=== PATIENT | female | born 1950 | race Caucasian/White ===

== ENCOUNTER → 2016-12-29 | Outpatient (REF) | payer MEDICARE, OTHER | LOC: M LAB REF 16:31 | PROVIDERS: ATTEND Internal Medicine | DX: E74.8 Other specified disorders of carbohydrate metabolism (principal) ==

== ENCOUNTER → 2017-03-06 | Outpatient (CLI) | payer MEDICARE, BC, OTHER ==
--- NOTE | 2017-03-06 09:17 | REP ---
Right hand four views: There is osteoarthritis at the thumb IP articulation, thumb MCP articulation and thumb CMC articulation. There is joint space narrowing of the PIP and DIP articulations compatible with early osteoarthritis. Mineralization is normal. There is no fracture or dislocation. There are no calcifications or foreign bodies. Impression: Osteoarthritis. Signed by DanielJ. Drea MD 03/06/2017 09:08 A [facility]
== END ==
LOC: M WUC 08:54
PROVIDERS: ATTEND Physician Assistant
DX: M25.549 Pain in joints of unspecified hand (principal)

== ENCOUNTER → 2017-12-20 | Outpatient (CLI) | payer MEDICARE, BC, OTHER ==
[2017-12-20 13:40] LABS: HEMATOCRIT 43.5 % (36.0-47.0); MEAN CORPUSCULAR HEMOGLOBIN 27.3 pg (27.0-33.0); MEAN CORPUSCULAR HGB CONC 32.2 g/dl (32.0-36.5); MEAN CORPUSCULAR VOLUME 84.8 fl (80.0-96.0); PLATELET COUNT, AUTOMATED 276 10^3/uL (150-450); RED BLOOD COUNT 5.13 10^6/uL (4.00-5.40); RED CELL DISTRIBUTION WIDTH 14.8 % (11.5-14.5); WHITE BLOOD COUNT 6.3 10^3/uL (4.0-10.0)
[2017-12-20 14:04] LABS: ALBUMIN 3.9 GM/DL (3.2-5.2); ALBUMIN/GLOBULIN RATIO 1.15 (1.00-1.93); ALKALINE PHOSPHATASE 116 U/L (45-117); ALT/SGPT 33 U/L (12-78); ANION GAP 9 MEQ/L (8-16); AST/SGOT 18 U/L (7-37); BLOOD UREA NITROGEN 17 MG/DL (7-18); CALCIUM LEVEL 9.2 MG/DL (8.8-10.2); CARBON DIOXIDE LEVEL 30 MEQ/L (21-32); CHLORIDE LEVEL 103 MEQ/L (98-107); CHOLESTEROL LEVEL 169 MG/DL (<200); CHOLESTEROL RISK RATIO 2.449 (<5); CREATININE FOR GFR 1.12 MG/DL (0.55-1.30); FREE T4 1.29 NG/DL (0.76-1.46); GLOMERULAR FILTRATION RATE 51.5 (>45); GLUCOSE, FASTING 110 MG/DL (70-100); HDL CHOLESTEROL 69 MG/DL (>40); LDL CHOLESTEROL 69.6 MG/DL (<100); MAGNESIUM LEVEL 2.4 MG/DL (1.8-2.4); NON-HDL-C 100 MG/DL; SODIUM LEVEL 142 MEQ/L (136-145); THYROID STIMULATING HORMONE 0.657 uIU/ML (0.358-3.740); TOTAL PROTEIN 7.3 GM/DL (6.4-8.2); TRIGLYCERIDES LEVEL 152 MG/DL (<150)
[2017-12-20 14:09] LABS: TOTAL 25(OH) VITAMIN D 32.2 NG/ML (30.0-100.0)
[2017-12-20 14:14] LABS: ESTIMATED AVERAGE GLUCOSE 146 MG/DL (60-110); HEMOGLOBIN A1c 6.7 %
== END ==
LOC: M SMT 08:13
DX: G47.62 Sleep related leg cramps (principal); E06.3 Autoimmune thyroiditis; E55.9 Vitamin D deficiency, unspecified; I10 Essential (primary) hypertension; E78.1 Pure hyperglyceridemia; E78.2 Mixed hyperlipidemia
CPT/HCPCS: 83735

== ENCOUNTER → 2018-06-08 | Outpatient (CLI) | payer MEDICARE, BC, OTHER ==
--- NOTE | 2018-06-08 13:17 | REP ---
RIGHT KNEE, FIVE VIEWS: HISTORY: Contusion. There is no acute fracture or dislocation. There is mild narrowing of the joint spaces. Osteophytes are present on the femur, tibia, and patella. IMPRESSION:There is no acute fracture or dislocation. Electronically Signed by Devaughn Thomas MD 06/08/2018 02:00 P
== END ==
LOC: M WUC 11:29
PROVIDERS: ATTEND Physician Assistant
DX: S80.02XA Contusion of left knee, initial encounter (principal)

== ENCOUNTER → 2018-07-02 | Outpatient (CLI) | payer MEDICARE, BC, OTHER ==
--- NOTE | 2018-07-02 14:36 | REP ---
RIGHT KNEE, FIVE VIEWS: HISTORY: Pain. There is no acute fracture or dislocation. There is mild narrowing of the joint spaces. Osteophytes are present on the femur, tibia, and patella. A calcification is present anterolateral to the distal femur. IMPRESSION: Degenerative change as described above. Electronically Signed by Devaughn Thomas MD 07/02/2018 02:47 P
== END ==
LOC: M WUC 13:18
PROVIDERS: ATTEND Physician Assistant
DX: M25.561 Pain in right knee (principal)

== ENCOUNTER → 2018-07-08 | Outpatient (CLI) | payer MEDICARE, BC, OTHER ==
[2018-07-08 10:10] LABS: BASO % 0.3 % (0.0-1.0); EOS # 0.2 10^3/uL (0.0-0.50); HEMATOCRIT 43.8 % (36.0-47.0); HEMOGLOBIN 13.9 g/dl (12.0-15.5); LYMPH # 2.2 10^3/uL (1.5-4.5); MEAN CORPUSCULAR HEMOGLOBIN 26.4 pg (27.0-33.0); MEAN CORPUSCULAR HGB CONC 31.7 g/dl (32.0-36.5); MEAN CORPUSCULAR VOLUME 83.1 fl (80.0-96.0); MONO # 0.5 10^3/uL (0.0-0.8); MONO % 7.2 % (0.0-5.0); NEUTROPHILS # 3.4 10^3/uL (1.8-7.7); NEUTROPHILS % 54.2 % (36.0-66.0); PLATELET COUNT, AUTOMATED 320 10^3/uL (150-450); RED BLOOD COUNT 5.27 10^6/uL (4.00-5.40); WHITE BLOOD COUNT 6.2 10^3/uL (4.0-10.0)
[2018-07-08 10:24] LABS: HEMOGLOBIN A1c 7.1 %
[2018-07-08 10:27] LABS: ALT/SGPT 26 U/L (12-78); BILIRUBIN,TOTAL 0.7 MG/DL (0.2-1.0); BLOOD UREA NITROGEN 21 MG/DL (7-18); CARBON DIOXIDE LEVEL 29 MEQ/L (21-32); CHLORIDE LEVEL 102 MEQ/L (98-107); CHOLESTEROL LEVEL 176 MG/DL (<200); CHOLESTEROL RISK RATIO 2.793 (<5); CREATININE FOR GFR 0.94 MG/DL (0.55-1.30); FREE T4 1.33 NG/DL (0.76-1.46); GLOMERULAR FILTRATION RATE > 60.0 (>45); GLUCOSE, FASTING 127 MG/DL (70-100); HDL CHOLESTEROL 63 MG/DL (>40); LDL CHOLESTEROL 72 MG/DL (<100); NON-HDL-C 113 MG/DL; POTASSIUM SERUM 4.9 MEQ/L (3.5-5.1); SODIUM LEVEL 137 MEQ/L (136-145); TOTAL PROTEIN 7.1 GM/DL (6.4-8.2); TRIGLYCERIDES LEVEL 204 MG/DL (<150)
[2018-07-09 09:58] LABS: TOTAL 25(OH) VITAMIN D 17.7 NG/ML (30.0-100.0)
== END ==
LOC: M WUC 08:11
PROVIDERS: ATTEND Family Medicine
DX: E78.2 Mixed hyperlipidemia (principal); E06.3 Autoimmune thyroiditis; E55.9 Vitamin D deficiency, unspecified; E11.9 Type 2 diabetes mellitus without complications

== ENCOUNTER → 2018-09-04 | Outpatient (CLI) | payer MEDICARE, BC, OTHER ==
[2018-09-04 12:47] LABS: BASO % 0.2 % (0.0-1.0); EOS # 0.1 10^3/uL (0.0-0.50); EOS % 1.4 % (0.0-3.0); HEMATOCRIT 43.1 % (36.0-47.0); HEMOGLOBIN 13.5 g/dl (12.0-15.5); LYMPH # 2.1 10^3/uL (1.5-4.5); LYMPH % 33.3 % (24.0-44.0); MEAN CORPUSCULAR HEMOGLOBIN 26.7 pg (27.0-33.0); MEAN CORPUSCULAR HGB CONC 31.3 g/dl (32.0-36.5); MEAN CORPUSCULAR VOLUME 85.3 fl (80.0-96.0); MONO # 0.4 10^3/uL (0.0-0.8); NEUTROPHILS # 3.7 10^3/uL (1.8-7.7); NEUTROPHILS % 57.8 % (36.0-66.0); PLATELET COUNT, AUTOMATED 300 10^3/uL (150-450); RED BLOOD COUNT 5.05 10^6/uL (4.00-5.40); WHITE BLOOD COUNT 6.3 10^3/uL (4.0-10.0)
[2018-09-04 12:53] LABS: ALBUMIN 3.8 GM/DL (3.2-5.2); PERCENT SATURATION 23.4 % (13.2-45.0)
[2018-09-04 13:05] LABS: HEMOGLOBIN A1c 6.6 %
== END ==
LOC: M WUC 09:48
PROVIDERS: ATTEND Orthopaedic Surgery
DX: D64.9 Anemia, unspecified (principal); M25.562 Pain in left knee; M17.12 Unilateral primary osteoarthritis, left knee; Z01.812 Encounter for preprocedural laboratory examination

== ENCOUNTER → 2018-09-24 | Outpatient (CLI) | payer MEDICARE, BC, OTHER ==
[2018-09-24 18:17] LABS: BASO % 0.5 % (0.0-1.0); EOS % 0.7 % (0.0-3.0); HEMATOCRIT 44.6 % (36.0-47.0); HEMOGLOBIN 14.1 g/dl (12.0-15.5); LYMPH # 1.8 10^3/uL (1.5-4.5); LYMPH % 30.8 % (24.0-44.0); MEAN CORPUSCULAR HEMOGLOBIN 27.3 pg (27.0-33.0); MEAN CORPUSCULAR HGB CONC 31.6 g/dl (32.0-36.5); MEAN CORPUSCULAR VOLUME 86.3 fl (80.0-96.0); MONO # 0.5 10^3/uL (0.0-0.8); MONO % 8.9 % (0.0-5.0); NEUTROPHILS # 3.5 10^3/uL (1.8-7.7); NEUTROPHILS % 58.4 % (36.0-66.0); PLATELET COUNT, AUTOMATED 316 10^3/uL (150-450); RED BLOOD COUNT 5.17 10^6/uL (4.00-5.40)
[2018-09-24 18:55] LABS: CALCIUM LEVEL 9.6 MG/DL (8.8-10.2); CREATININE FOR GFR 1.02 MG/DL (0.55-1.30); GLOMERULAR FILTRATION RATE 57.2 (>45); POTASSIUM SERUM 4.6 MEQ/L (3.5-5.1)
[2018-09-24 20:13] LABS: HEMOGLOBIN A1c 6.7 %
== END ==
LOC: M SMT 11:26
PROVIDERS: ATTEND Physician Assistant
DX: Z01.818 Encounter for other preprocedural examination (principal)

== ENCOUNTER → 2018-12-29 | Outpatient (CLI) | payer MEDICARE, BC, OTHER ==
[2018-12-29 17:28] LABS: HEMOGLOBIN A1c 6.6 %
[2018-12-29 17:29] LABS: ALBUMIN 3.8 GM/DL (3.2-5.2); ALT/SGPT 23 U/L (12-78); BILIRUBIN,TOTAL 0.6 MG/DL (0.2-1.0); BLOOD UREA NITROGEN 18 MG/DL (7-18); CALCIUM LEVEL 8.8 MG/DL (8.8-10.2); CARBON DIOXIDE LEVEL 31 MEQ/L (21-32); CHLORIDE LEVEL 105 MEQ/L (98-107); CHOLESTEROL LEVEL 144 MG/DL (<200); CHOLESTEROL RISK RATIO 2.526 (<5); CREATININE FOR GFR 0.97 MG/DL (0.55-1.30); FREE T4 1.22 NG/DL (0.76-1.46); GLOMERULAR FILTRATION RATE > 60.0 (>45); GLUCOSE, FASTING 107 MG/DL (70-100); HDL CHOLESTEROL 57 MG/DL (>40); LDL CHOLESTEROL 58 MG/DL (<100); NON-HDL-C 87 MG/DL; POTASSIUM SERUM 4.8 MEQ/L (3.5-5.1); SODIUM LEVEL 140 MEQ/L (136-145); TRIGLYCERIDES LEVEL 146 MG/DL (<150)
[2018-12-31 11:42] LABS: TOTAL 25(OH) VITAMIN D 27.3 NG/ML (30.0-100.0)
== END ==
LOC: M WUC 08:04
PROVIDERS: ATTEND Family Medicine
DX: E55.9 Vitamin D deficiency, unspecified (principal); E06.3 Autoimmune thyroiditis; E11.9 Type 2 diabetes mellitus without complications; E78.2 Mixed hyperlipidemia; I10 Essential (primary) hypertension

== ENCOUNTER → 2019-03-07 | Outpatient (CLI) | payer MEDICARE, BC, OTHER ==
[2019-03-07 09:31] LABS: HEMATOCRIT 40.9 % (36.0-47.0); HEMOGLOBIN 12.8 g/dl (12.0-15.5); MEAN CORPUSCULAR HGB CONC 31.3 g/dl (32.0-36.5); MEAN CORPUSCULAR VOLUME 83.1 fl (80.0-96.0); PLATELET COUNT, AUTOMATED 308 10^3/uL (150-450); RED BLOOD COUNT 4.92 10^6/uL (4.00-5.40); WHITE BLOOD COUNT 6.4 10^3/uL (4.0-10.0)
[2019-03-07 09:57] LABS: ERYTHROCYTE SEDIMENTATION RATE 22 mm/hr (0-30)
== END ==
LOC: M WUC 08:14
PROVIDERS: ATTEND Physician Assistant Medical
DX: Z47.89 Encounter for other orthopedic aftercare (principal); M25.562 Pain in left knee

== ENCOUNTER → 2019-03-20 | Outpatient (CLI) | payer MEDICARE, BC, OTHER ==
[2019-03-20 09:39] LABS: ALBUMIN 3.7 GM/DL (3.2-5.2); ALT/SGPT 39 U/L (12-78); BILIRUBIN,TOTAL 0.8 MG/DL (0.2-1.0); BLOOD UREA NITROGEN 15 MG/DL (7-18); CALCIUM LEVEL 9.5 MG/DL (8.8-10.2); CARBON DIOXIDE LEVEL 30 MEQ/L (21-32); CHLORIDE LEVEL 105 MEQ/L (98-107); CREATININE FOR GFR 0.97 MG/DL (0.55-1.30); GLOMERULAR FILTRATION RATE > 60.0 (>45); GLUCOSE, FASTING 124 MG/DL (70-100); POTASSIUM SERUM 4.7 MEQ/L (3.5-5.1); SODIUM LEVEL 140 MEQ/L (136-145); TOTAL PROTEIN 6.8 GM/DL (6.4-8.2)
[2019-03-20 09:43] LABS: HEMOGLOBIN A1c 6.6 %
[2019-03-20 20:04] LABS: MALB URINE SIEMENS 18.4 MG/L; MAU/CREAT RATIO 7.7 MCG/MG (0.0-30.0)
== END ==
LOC: M WUC 08:03
PROVIDERS: ATTEND Family Medicine
DX: E11.9 Type 2 diabetes mellitus without complications (principal)

== ENCOUNTER → 2019-06-24 | Outpatient (CLI) | payer MEDICARE, BC, OTHER ==
[2019-06-24 10:51] LABS: BLOOD UREA NITROGEN 21 MG/DL (7-18); CALCIUM LEVEL 9.3 MG/DL (8.8-10.2); CARBON DIOXIDE LEVEL 29 MEQ/L (21-32); CHLORIDE LEVEL 104 MEQ/L (98-107); CHOLESTEROL LEVEL 151 MG/DL (<200); CREATININE FOR GFR 0.97 MG/DL (0.55-1.30); FREE T4 1.41 NG/DL (0.76-1.46); GLOMERULAR FILTRATION RATE > 60.0 (>39); GLUCOSE, FASTING 133 MG/DL (70-100); HDL CHOLESTEROL 51 MG/DL (>40); LDL CHOLESTEROL 70 MG/DL (<100); NON-HDL-C 100 MG/DL; POTASSIUM SERUM 4.2 MEQ/L (3.5-5.1); SODIUM LEVEL 141 MEQ/L (136-145); TRIGLYCERIDES LEVEL 149 MG/DL (<150)
[2019-06-24 10:57] LABS: TOTAL 25(OH) VITAMIN D 28.1 NG/ML (30.0-100.0)
[2019-06-24 11:19] LABS: HEMOGLOBIN A1c 6.8 %
== END ==
LOC: M WUC 08:25
PROVIDERS: ATTEND Physician Assistant
DX: E55.9 Vitamin D deficiency, unspecified (principal); E06.3 Autoimmune thyroiditis; E78.2 Mixed hyperlipidemia

== ENCOUNTER → 2019-07-29 | Outpatient (CLI) | payer MEDICARE, BC, OTHER ==
[2019-07-29 16:16] LABS: ALBUMIN 3.9 GM/DL (3.2-5.2); BILIRUBIN,TOTAL 0.9 MG/DL (0.2-1.0); CALCIUM LEVEL 9.6 MG/DL (8.8-10.2); CREATININE FOR GFR 1.07 MG/DL (0.55-1.30); MAGNESIUM LEVEL 2.4 MG/DL (1.8-2.4); POTASSIUM SERUM 4.2 MEQ/L (3.5-5.1); TOTAL PROTEIN 6.7 GM/DL (6.4-8.2)
== END ==
LOC: M WUC 12:55
PROVIDERS: ATTEND Internal Medicine Cardiovascular Disease
DX: R06.02 Shortness of breath (principal)

== ENCOUNTER → 2019-09-23 | Outpatient (CLI) | payer MEDICARE, BC, OTHER | LOC: M LABSMTC 12:34 | PROVIDERS: ATTEND Family Medicine | DX: Z11.59 Encounter for screening for other viral diseases (principal); Z20.828 Contact with and (suspected) exposure to other viral communicable diseases ==

== ENCOUNTER → 2020-01-14 | Outpatient (REF) | payer MEDICARE, BC, OTHER | LOC: M LAB REF 09:17 | PROVIDERS: ATTEND Dermatology | DX: R22.1 Localized swelling, mass and lump, neck (principal) ==

== ENCOUNTER → 2020-01-15 | Outpatient (CLI) | payer MEDICARE, BC, OTHER | LOC: M LABSMTC 10:30 | PROVIDERS: ATTEND Ophthalmology | DX: Z20.828 Contact with and (suspected) exposure to other viral communicable diseases (principal) | CPT/HCPCS: C9803; U0003 ==

== ENCOUNTER → 2020-02-05 | Outpatient (CLI) | payer MEDICARE, BC, OTHER | LOC: M LABSMTC 10:11 | PROVIDERS: ATTEND Ophthalmology | DX: Z20.828 Contact with and (suspected) exposure to other viral communicable diseases (principal) | CPT/HCPCS: C9803; U0003 ==

== ENCOUNTER → 2020-03-27 | Outpatient (REF) | payer MEDICARE, OTHER | LOC: M LAB REF 17:02 | PROVIDERS: ATTEND Ophthalmology | DX: H02.821 Cysts of right upper eyelid (principal) ==

== ENCOUNTER → 2020-05-12 | Outpatient (REF) | payer MEDICARE, OTHER | LOC: M LAB REF 14:53 | PROVIDERS: ATTEND Dermatology | DX: L72.0 Epidermal cyst (principal) ==

== ENCOUNTER 2020-05-27 10:38 | Outpatient (RCR) | payer MEDICARE, BC, OTHER | END 2020-05-28 | LOC: M PT 10:38 | PROVIDERS: ATTEND Orthopaedic Surgery | DX: Z47.89 Encounter for other orthopedic aftercare (principal); M25.551 Pain in right hip; M54.5 Low back pain ==

== ENCOUNTER 2020-06-22 10:34 | Outpatient (RCR) | payer MEDICARE, BC, OTHER | END 2020-06-28 | LOC: M PT 10:34 | PROVIDERS: ATTEND Orthopaedic Surgery | DX: M25.551 Pain in right hip (principal); M54.5 Low back pain ==

== ENCOUNTER 2020-07-20 10:45 | Outpatient (RCR) | payer MEDICARE, BC, OTHER | END 2020-07-26 | LOC: M PT 10:45 | PROVIDERS: ATTEND Orthopaedic Surgery | DX: M25.551 Pain in right hip (principal); M54.5 Low back pain ==

== ENCOUNTER → 2020-08-26 | Outpatient (RCR) | payer MEDICARE, BC, OTHER | LOC: M PT 07-27 10:33 | PROVIDERS: ATTEND Orthopaedic Surgery | DX: M54.5 Low back pain (principal); M25.551 Pain in right hip ==

== ENCOUNTER → 2020-09-03 | Outpatient (CLI) | payer MEDICARE, BC, OTHER ==
[2020-09-03 18:38] LABS: BASO % 0.1 % (0.0-1.0); EOS % 0.4 % (0.0-3.0); HEMATOCRIT 43.8 % (36.0-47.0); HEMOGLOBIN 13.8 g/dl (12.0-15.5); LYMPH # 2.4 10^3/uL (1.5-5.0); LYMPH % 32.2 % (24.0-44.0); MEAN CORPUSCULAR HEMOGLOBIN 26.9 pg (27.0-33.0); MEAN CORPUSCULAR HGB CONC 31.5 g/dl (32.0-36.5); MEAN CORPUSCULAR VOLUME 85.4 fl (80.0-96.0); MONO # 0.6 10^3/uL (0.0-0.8); MONO % 7.5 % (2.0-8.0); NEUTROPHILS # 4.4 10^3/uL (1.5-8.5); NEUTROPHILS % 59.7 % (36.0-66.0); PLATELET COUNT, AUTOMATED 344 10^3/uL (150-450); RED BLOOD COUNT 5.13 10^6/uL (4.00-5.40); WHITE BLOOD COUNT 7.3 10^3/uL (4.0-10.0)
[2020-09-03 18:52] LABS: BILIRUBIN,TOTAL 0.7 MG/DL (0.2-1.0); CALCIUM LEVEL 9.5 MG/DL (8.8-10.2); CREATININE FOR GFR 1.08 MG/DL (0.55-1.30); GLOMERULAR FILTRATION RATE 53.2 (>39); POTASSIUM SERUM 4.2 MEQ/L (3.5-5.1); TOTAL PROTEIN 7.1 GM/DL (6.4-8.2)
== END ==
LOC: M LAB 17:35
PROVIDERS: ATTEND Family Medicine
DX: K57.32 Diverticulitis of large intestine without perforation or abscess without bleeding (principal)

== ENCOUNTER → 2020-09-04 | Outpatient (CLI) | payer MEDICARE, BC, OTHER ==
[~2020-09-04] MED LIST: GASTROGRAFIN SOLUTION 30ML (Q9963) As Ordered ONE; ISOVUE-370 76% 100ML VIAL As Ordered ONE
--- NOTE | 2020-09-04 13:23 | REP ---
INDICATION: ABD PAIN BLOATING. COMPARISON: None. TECHNIQUE: Abdomen is and pelvis CT with IV and bowel contrast. FINDINGS: Patient indicates that she has a cholecystectomy and appendectomy. Visualized lung lopez are unremarkable. The hepatic parenchyma is hypodense compatible with hepato steatosis. There are surgical clips in the gallbladder fossa. There is fatty atrophy of the pancreas. The spleen is unremarkable. The adrenals are unremarkable. Kidneys are unremarkable except for few tiny renal cysts. The abdominal aorta is unremarkable. There is no periaortic adenopathy or mass. There is wall thickening of the ascending colon and transverse colon, nonspecific but could represent infectious versus inflammatory colitis in the appropriate clinical setting. The bowel is otherwise unremarkable. Pelvis: The uterus, adnexa and bladder are unremarkable. There is no adenopathy or ascites. IMPRESSION: There is wall thickening of the ascending colon transverse colon, nonspecific, but could represent infectious versus inflammatory colitis in the appropriate clinical setting. The cholecystectomy and appendectomy. Hepato steatosis. Fatty atrophy of the pancreas. <Electronically signed by Kamlesh Shepard > 09/04/20 [id number]
== END ==
LOC: M RAD 11:09
PROVIDERS: ATTEND Family Medicine
DX: K57.32 Diverticulitis of large intestine without perforation or abscess without bleeding (principal); Z90.49 Acquired absence of other specified parts of digestive tract; Z76.0 Encounter for issue of repeat prescription
CPT/HCPCS: 74177; Q9963; Q9967

== ENCOUNTER 2020-09-16 12:22 | Outpatient (RCR) | payer MEDICARE, BC, OTHER | END 2020-09-25 | LOC: M PT 12:22 | PROVIDERS: ATTEND Orthopaedic Surgery | DX: M25.551 Pain in right hip (principal) ==

== ENCOUNTER 2020-09-29 14:14 | Outpatient (RCR) | payer MEDICARE, BC, OTHER | END 2020-10-26 | LOC: M PT 14:14 | PROVIDERS: ATTEND Orthopaedic Surgery | DX: M70.61 Trochanteric bursitis, right hip (principal) ==

== ENCOUNTER 2020-11-11 09:52 | Outpatient (RCR) | payer MEDICARE, BC, OTHER | END 2020-11-25 | LOC: M PT 09:52 | PROVIDERS: ATTEND Orthopaedic Surgery Orthopaedic Surgery of the Spine | DX: M54.5 Low back pain (principal) ==

== ENCOUNTER 2020-12-01 09:51 | Outpatient (RCR) | payer MEDICARE, BC, OTHER | END 2020-12-26 | LOC: M PT 09:51 | PROVIDERS: ATTEND Orthopaedic Surgery Orthopaedic Surgery of the Spine | DX: M54.5 Low back pain (principal) ==

== ENCOUNTER → 2021-01-01 | Outpatient (REF) | payer MEDICARE, BC, OTHER | LOC: M WUC 19:26 | PROVIDERS: ATTEND Physician Assistant | DX: R30.0 Dysuria (principal) ==

== ENCOUNTER 2021-02-24 12:03 | Outpatient (RCR) | payer MEDICARE, BC, OTHER | END 2021-02-25 | LOC: M PT 12:03 | PROVIDERS: ATTEND Orthopaedic Surgery Orthopaedic Surgery of the Spine | DX: Z47.89 Encounter for other orthopedic aftercare (principal); Z98.1 Arthrodesis status; M54.5 Low back pain ==

== ENCOUNTER 2021-03-25 12:44 | Outpatient (RCR) | payer MEDICARE, BC, OTHER | END 2021-03-28 | LOC: M PT 12:44 | PROVIDERS: ATTEND Orthopaedic Surgery Orthopaedic Surgery of the Spine | DX: Z47.89 Encounter for other orthopedic aftercare (principal); M54.50 Low back pain, unspecified ==

== ENCOUNTER → 2021-04-15 | Outpatient (REF) | payer MEDICARE, OTHER | LOC: M SFHCRHEU 11:27 | PROVIDERS: ATTEND Internal Medicine | DX: M25.40 Effusion, unspecified joint (principal) | CPT/HCPCS: 85652; 86140; G0463 ==

== ENCOUNTER 2021-04-20 13:00 | Outpatient (RCR) | payer MEDICARE, BC, OTHER | END 2021-04-27 | LOC: M PT 13:00 | PROVIDERS: ATTEND Orthopaedic Surgery Orthopaedic Surgery of the Spine | DX: M54.50 Low back pain, unspecified (principal); Z47.89 Encounter for other orthopedic aftercare ==

== ENCOUNTER → 2021-04-30 | Outpatient (REF) | payer MEDICARE, OTHER ==
[2021-04-30 17:46] LABS: APPEARANCE, URINE HAZY (CLEAR); BILIRUBIN, URINE AUTO NEGATIVE (NEGATIVE); BLOOD, URINE BLOOD NEGATIVE (NEGATIVE); COLOR, URINE AMBER (YELLOW); GLUCOSE, URINE (UA) AUTO NEGATIVE (NEGATIVE); KETONE, URINE AUTO TRACE mg/dL (NEGATIVE); LEUKOCYTE ESTERASE, URINE AUTO 1+ (NEGATIVE); NITRITE, URINE AUTO NEGATIVE (NEGATIVE); PROTEIN, URINE AUTO NEGATIVE (NEGATIVE); SPECIFIC GRAVITY URINE AUTO 1.031 (1.002-1.035); UROBILINOGEN, URINE AUTO 0.2 mg/dL (0.0-2.0)
[2021-04-30 17:54] LABS: CALCIUM LEVEL 9.9 MG/DL (8.8-10.2); CREATININE FOR GFR 1.05 MG/DL (0.55-1.30); POTASSIUM SERUM 4.5 MEQ/L (3.5-5.1)
[2021-04-30 17:59] LABS: TOTAL PROTEIN,RANDOM URINE 19.7 MG/DL (0.0-12.0)
[2021-05-04 09:50] LABS: DRVV SCREEN 39.6 SEC
[2021-05-04 09:53] LABS: PTT LUPUS TYPE ANTICOAG SCREEN 1.1 (0-1.2)
== END ==
LOC: M SFHCRHEU 13:58
PROVIDERS: ATTEND Internal Medicine
DX: M06.4 Inflammatory polyarthropathy (principal); R76.8 Other specified abnormal immunological findings in serum
CPT/HCPCS: 36415; 80048; 81001; 82570; 84156; 85730; 86160; 86162; G0463

== ENCOUNTER 2021-05-18 09:40 | Outpatient (RCR) | payer MEDICARE, BC, OTHER | END 2021-05-28 | LOC: M PT 09:40 | PROVIDERS: ATTEND Orthopaedic Surgery Orthopaedic Surgery of the Spine | DX: Z47.89 Encounter for other orthopedic aftercare (principal); M54.50 Low back pain, unspecified ==

== ENCOUNTER → 2021-08-10 | Outpatient (REF) | payer MEDICARE, OTHER ==
[2021-08-10 17:42] LABS: C REACTIVE PROTEIN QUANTITATIV < 0.30 MG/DL (0.00-0.30); COMPLEMENT C3 138 MG/DL (90-180); COMPLEMENT C4 26 MG/DL (10-40)
[2021-08-16 14:09] LABS: ANTI DS-DNA AB Negative (Negative); COMPLEMENT TOTAL (CH50) > 60 U/mL (>41); G6PD2 5.12 x10E6/uL (3.77-5.28)
== END ==
LOC: M SFHCRHEU 12:47
PROVIDERS: ATTEND Internal Medicine
DX: M32.9 Systemic lupus erythematosus, unspecified (principal)

== ENCOUNTER → 2021-08-11 | Outpatient (REF) | payer MEDICARE, OTHER ==
[2021-08-11 12:52] LABS: APPEARANCE, URINE HAZY (CLEAR); BACTERIA, URINE AUTO NEGATIVE (NEGATIVE); BILIRUBIN, URINE AUTO NEGATIVE (NEGATIVE); BLOOD, URINE BLOOD NEGATIVE (NEGATIVE); COLOR, URINE YELLOW (YELLOW); GLUCOSE, URINE (UA) AUTO NEGATIVE (NEGATIVE); KETONE, URINE AUTO NEGATIVE (NEGATIVE); LEUKOCYTE ESTERASE, URINE AUTO NEGATIVE (NEGATIVE); NITRITE, URINE AUTO NEGATIVE (NEGATIVE); PROTEIN, URINE AUTO NEGATIVE (NEGATIVE); RBC, URINE AUTO 0 /HPF (0-3); SPECIFIC GRAVITY URINE AUTO 1.014 (1.002-1.035); SQUAMOUS EPITHELIAL CELL UR AU 1 /HPF (0-6); UROBILINOGEN, URINE AUTO 0.2 mg/dL (0.0-2.0); WBC, URINE AUTO 3 /HPF (0-3)
[2021-08-11 13:16] LABS: CREATININE,RANDOM URINE 55.5 MG/DL; TOTAL PROTEIN,RANDOM URINE 17.3 MG/DL (0.0-12.0)
== END ==
LOC: M SFHCRHEU 12:09
PROVIDERS: ATTEND Internal Medicine
DX: M32.9 Systemic lupus erythematosus, unspecified (principal)

== ENCOUNTER → 2021-08-16 | Outpatient (REF) | payer MEDICARE, OTHER | LOC: M SFHCDERM 14:31 | PROVIDERS: ATTEND Nurse Practitioner Family | DX: L57.0 Actinic keratosis (principal) ==

== ENCOUNTER → 2021-10-22 | Outpatient (CLI) | payer MEDICARE, BC, OTHER ==
[~2021-10-22] MED LIST changes: -GASTROGRAFIN SOLUTION 30ML (Q9963) As Ordered ONE
== END ==
LOC: M RAD 09:44
PROVIDERS: ATTEND Nurse Practitioner Adult Health
DX: K11.20 Sialoadenitis, unspecified (principal)
CPT/HCPCS: 70492; Q9967

== ENCOUNTER → 2021-11-03 | Outpatient (REF) | payer MEDICARE, BC, OTHER | LOC: M LAB REF 09:28 | PROVIDERS: ATTEND Nurse Practitioner Adult Health | DX: R19.7 Diarrhea, unspecified (principal) ==

== ENCOUNTER → 2021-11-12 | Outpatient (CLI) | payer MEDICARE, OTHER | LOC: M WUC 13:23 | PROVIDERS: ATTEND Family Medicine | DX: R06.02 Shortness of breath (principal) ==

== ENCOUNTER → 2021-12-01 | Outpatient (CLI) | payer MEDICARE, OTHER, BC | LOC: M RAD 16:17 | PROVIDERS: ATTEND Family Medicine | DX: R91.1 Solitary pulmonary nodule (principal); K76.0 Fatty (change of) liver, not elsewhere classified; Z90.49 Acquired absence of other specified parts of digestive tract | CPT/HCPCS: 71260; Q9967 ==

== ENCOUNTER 2021-12-06 11:29 | Emergency (ER) | payer MEDICARE, BC, OTHER ==
[~2021-12-06] VITALS: Ht 165.1 cm; Wt 86.7 kg
[2021-12-06] MEDS ORDERED: LEVO125T4 (12:26)
[2021-12-06] MEDS ORDERED: ATOR1TAB21 (12:26)
[2021-12-06] MEDS ORDERED: MELA5CAP2 PO (12:26)
[2021-12-06] MEDS ORDERED: VITA500C24 PO (12:26)
[2021-12-06] MEDS ORDERED: NOXI1TAB PO (12:26)
[2021-12-06] MEDS ORDERED: METH4TAB8 (12:26)
[2021-12-06] MEDS ORDERED: LOTR10CA PO (12:26)
[2021-12-06] MEDS ORDERED: HYDR200T3 (12:26)
[2021-12-06] MEDS ORDERED: MECL-86 PO (12:26)
[2021-12-06] MEDS ORDERED: METF10004 PO (12:26)
[2021-12-06] MEDS ORDERED: SOLI10TA (12:26)
[2021-12-06] MEDS ORDERED: ALBU8.5H (12:26)
[2021-12-06] MEDS ORDERED: LIDOCAINE 4% CREAM 5GM (LMX4) TOP ONE (16:55)
[2021-12-06] MEDS ORDERED: ANEC4CRE3 TOP (17:47)
[2021-12-06 18:23] VITALS: BP 160/99
== END 2021-12-06 18:24 | disposition home or self-care (01) ==
LOC: M ED 11:29
DX: M79.661 Pain in right lower leg (principal); I10 Essential (primary) hypertension; E78.5 Hyperlipidemia, unspecified; M32.9 Systemic lupus erythematosus, unspecified; Z91.81 History of falling; Z88.5 Allergy status to narcotic agent; Z88.8 Allergy status to other drugs, medicaments and biological substances; Z79.51 Long term (current) use of inhaled steroids; Z79.4 Long term (current) use of insulin; Z79.899 Other long term (current) drug therapy

== ENCOUNTER → 2021-12-16 | Outpatient (REF) | payer MEDICARE, OTHER ==
[~2021-12-16] MED LIST changes: +ALBU8.5H; +ANEC4CRE3 TOP; +ATOR1TAB21; +HYDR200T3; -ISOVUE-370 76% 100ML VIAL As Ordered ONE; +LEVO125T4; +LOTR10CA PO; +MECL-86 PO; +MELA5CAP2 PO; +METF10004 PO; +METH4TAB8; +NOXI1TAB PO; +SOLI10TA; +VITA500C24 PO
== END ==
LOC: M LAB REF 15:06
PROVIDERS: ATTEND Family Medicine
DX: R19.7 Diarrhea, unspecified (principal)

== ENCOUNTER → 2021-12-28 | Outpatient (REF) | payer MEDICARE, OTHER ==
[~2021-12-28] MED LIST changes: -ALBU8.5H; +ALBU8.5H INH; -ATOR1TAB21; +ATOR1TAB21 PO; +CENT1TAB PO; +CYCL5TAB PO; -HYDR200T3; +HYDR200T3 PO; -LEVO125T4; +LEVO125T4 PO; +METF500T13 PO; -SOLI10TA; +SOLI10TA PO; +VITA100054 PO; +VITA200044 PO
[2021-12-28 16:44] LABS: BASO % 0.3 % (0.0-1.0); EOS % 0.4 % (0.0-3.0); HEMOGLOBIN 13.9 g/dl (12.0-15.5); LYMPH # 2.2 10^3/uL (1.5-5.0); LYMPH % 23.1 % (24.0-44.0); MEAN CORPUSCULAR HEMOGLOBIN 28.3 pg (27.0-33.0); MEAN CORPUSCULAR HGB CONC 31.6 g/dl (32.0-36.5); MEAN CORPUSCULAR VOLUME 89.6 fl (80.0-96.0); MONO # 0.7 10^3/uL (0.0-0.8); MONO % 7.3 % (2.0-8.0); NEUTROPHILS # 6.4 10^3/uL (1.5-8.5); NEUTROPHILS % 68.1 % (36.0-66.0); PLATELET COUNT, AUTOMATED 290 10^3/uL (150-450); RED BLOOD COUNT 4.91 10^6/uL (4.00-5.40); WHITE BLOOD COUNT 9.4 10^3/uL (4.0-10.0)
[2021-12-28 17:44] LABS: ALBUMIN 3.8 GM/DL (3.2-5.2); BILIRUBIN,DIRECT 0.1 MG/DL (0.0-0.2); BILIRUBIN,TOTAL 0.6 MG/DL (0.2-1.0); C REACTIVE PROTEIN QUANTITATIV 0.3 MG/DL (0.00-0.30); CALCIUM LEVEL 10.3 MG/DL (8.8-10.2); CREATININE FOR GFR 1.09 MG/DL (0.55-1.30); GLOMERULAR FILTRATION RATE 52.5 (>39); POTASSIUM SERUM 3.7 MEQ/L (3.5-5.1); TOTAL PROTEIN 6.9 GM/DL (6.4-8.2)
[2021-12-28 19:38] LABS: ERYTHROCYTE SEDIMENTATION RATE 8 mm/hr (0-30)
== END ==
LOC: M SFHCRHEU 11:45
PROVIDERS: ATTEND Internal Medicine
DX: M32.9 Systemic lupus erythematosus, unspecified (principal); Z79.899 Other long term (current) drug therapy

== ENCOUNTER 2022-01-16 20:17 | Observation (INO) | payer MEDICARE, BC, OTHER ==
[~2022-01-16] VITALS: Ht 165.1 cm; Wt 84.0 kg
[2022-01-16 20:50] LABS: EOS % 0.3 % (0.0-3.0); HEMATOCRIT 39.4 % (36.0-47.0); HEMOGLOBIN 12.7 g/dl (12.0-15.5); LYMPH # 0.5 10^3/uL (1.5-5.0); LYMPH % 13.9 % (24.0-44.0); MEAN CORPUSCULAR HEMOGLOBIN 27.7 pg (27.0-33.0); MEAN CORPUSCULAR HGB CONC 32.2 g/dl (32.0-36.5); MONO # 0.2 10^3/uL (0.0-0.8); MONO % 6.1 % (2.0-8.0); NEUTROPHILS % 79.4 % (36.0-66.0); PLATELET COUNT, AUTOMATED 283 10^3/uL (150-450); RED BLOOD COUNT 4.58 10^6/uL (4.00-5.40); WHITE BLOOD COUNT 3.8 10^3/uL (4.0-10.0)
[2022-01-16 20:54] LABS: ABG BASE EXCESS -1.1 (-2.0-2.0); ABG HCO3 22.7 MEQ/L (22.0-26.0); ABG O2 SATURATION 97.9 % (95.0-99.0); ABG PARTIAL PRESSURE O2 110.9 mmHg (75.0-100.0); ABG STANDARD HCO3 23.5 MEQ/L (22.0-26.0); ABG TOTAL CO2 23.7 MEQ/L (23.0-31.0); ABG pH (ARTERIAL) 7.429 UNITS (7.350-7.450)
[2022-01-16 21:07] LABS: INR 1.15; PROTHROMBIN TIME 15.1 SECONDS (12.7-14.5)
[2022-01-16 21:39] LABS: BLOOD UREA NITROGEN 25 MG/DL (7-18); CALCIUM LEVEL 8.4 MG/DL (8.8-10.2); CARBON DIOXIDE LEVEL 26 MEQ/L (21-32); CHLORIDE LEVEL 102 MEQ/L (98-107); ETHYL ALCOHOL (ETHANOL) < 0.003 % (0.000-0.010); GLUCOSE, FASTING 127 MG/DL (70-100); MAGNESIUM LEVEL 1.5 MG/DL (1.8-2.4); POTASSIUM SERUM 4.4 MEQ/L (3.5-5.1); SODIUM LEVEL 137 MEQ/L (136-145); THYROID STIMULATING HORMONE 0.776 uIU/ML (0.358-3.740)
[2022-01-16 21:49] LABS: MB/CK RELATIVE INDEX 0.22 (< OR =4)
[2022-01-16] MEDS ORDERED: MAG SULF 1GM/100ML (MAG RUN) 1 GM in IV 1 EA IV ONE (21:50)
[2022-01-16] MEDS ORDERED: NS 1,000 ML IV ONE (23:05)
[2022-01-16 23:58] LABS: CK-MB VALUE MASS 5.7 NG/ML (<3.6); MB/CK RELATIVE INDEX 0.23 (< OR =4)
[2022-01-17 01:29] LABS: RBC, URINE 0-1 /hpf (0-3); SQUAMOUS EPITHELIAL CELL URINE LARGE AMOUNT /hpf (SMALL AMT)
[2022-01-17 01:30] LABS: AMORPHOUS SEDIMENT, URINE SMALL AMOUNT (NEGATIVE); BACTERIA, URINE SMALL AMOUNT; MUCUS, URINE MOD AMOUNT (NEGATIVE)
[2022-01-17] MEDS ORDERED: GLUCAGON INJ 1MG VIAL SC PRN (02:00)
[2022-01-17] MEDS ORDERED: GLUCOSE 4GM CHEW TABLET PO PRN (02:00)
[2022-01-17] MEDS ORDERED: DEXTROSE 50% 50 ML SYRINGE IV PRN (02:00)
[2022-01-17] MEDS ORDERED: ACETAMINOPHEN TAB 650MG DOSE (2X325MG) PO PRN (02:00)
[2022-01-17] MEDS ORDERED: LR 1,000 ML IV ONE (02:00)
[2022-01-17 02:02] LABS: AMPHETAMINES LEVEL URINE NEGATIVE (NEGATIVE); BARBITURATES URINE NEGATIVE (NEGATIVE); BENZODIAZEPINES URINE NEGATIVE (NEGATIVE); CANNABINOIDS URINE NEGATIVE (NEGATIVE); COCAINE METABOLITE URINE NEGATIVE (NEGATIVE); METHADONE URINE NEGATIVE (NEGATIVE); OPIATES URINE NEGATIVE (NEGATIVE); PHENCYCLIDINE URINE NEGATIVE (NEGATIVE)
[2022-01-17] MEDS ORDERED: FOLI1TAB11 PO (02:04)
[2022-01-17] MEDS ORDERED: HOME MED LIST COMPLETE! XX SCH (02:05)
[2022-01-17] MEDS ORDERED: ALBUTEROL 90 MCG/ACT 8GM HFA INHALER INH PRN (02:20)
[2022-01-17] MEDS ORDERED: CYCLOBENZAPRINE 5MG TABLET PO PRN (02:20)
[2022-01-17] MEDS ORDERED: MECLIZINE 25 MG TABLET PO PRN (02:20)
[2022-01-17] MEDS ORDERED: LEVOTHYROXINE 125MCG TABLET (0.125MG) PO SCH (06:00)
[2022-01-17 06:58] LABS: HEMATOCRIT 37.2 % (36.0-47.0); HEMOGLOBIN 11.5 g/dl (12.0-15.5); MEAN CORPUSCULAR HEMOGLOBIN 27.1 pg (27.0-33.0); MEAN CORPUSCULAR HGB CONC 30.9 g/dl (32.0-36.5); MEAN CORPUSCULAR VOLUME 87.7 fl (80.0-96.0); PLATELET COUNT, AUTOMATED 260 10^3/uL (150-450); RED BLOOD COUNT 4.24 10^6/uL (4.00-5.40); WHITE BLOOD COUNT 3.4 10^3/uL (4.0-10.0)
[2022-01-17 07:40] LABS: BLOOD UREA NITROGEN 21 MG/DL (7-18); CALCIUM LEVEL 7.8 MG/DL (8.8-10.2); CARBON DIOXIDE LEVEL 26 MEQ/L (21-32); CHLORIDE LEVEL 105 MEQ/L (98-107); GLOMERULAR FILTRATION RATE > 60.0 (>39); GLUCOSE, FASTING 113 MG/DL (70-100); SODIUM LEVEL 139 MEQ/L (136-145)
[2022-01-17] MEDS: INSULIN LISPRO (NovoLOG) PER UNIT SC SCH ×2 (07:53→12:58)
[2022-01-17] MEDS ORDERED: ATORVASTATIN 20 MG TAB PO SCH (09:00)
[2022-01-17] MEDS: DOCUSATE SODIUM 100MG CAPSULE PO SCH ×2 (09:00→09:10)
[2022-01-17] MEDS ORDERED: FOLIC ACID 1MG TAB PO SCH (09:00)
[2022-01-17] MEDS ORDERED: BENAZEPRIL 20 MG TAB PO SCH (09:00)
[2022-01-17] MEDS ORDERED: ENOXAPARIN 40MG/0.4ML SYRINGE (J1650 PER 10MG) SC SCH (09:00)
[2022-01-17] MEDS: ACETAMINOPHEN 500 MG TAB PO SCH ×2 (09:00→09:07)
[2022-01-17 09:14] LABS: HEMOGLOBIN A1c 6.6 %
[2022-01-17 13:58] VITALS: BP 132/72
[2022-01-17] MEDS ORDERED: INSULIN LISPRO (NovoLOG) PER UNIT SC SCH (21:00)
[2022-02-15] MEDS ORDERED: HYDR-3490 PO (10:01)
[2022-02-15] MEDS ORDERED: CALT1TAB PO (10:01)
== END 2022-01-17 13:57 | disposition home or self-care (01) ==
LOC: M ED 20:17 → EDBD 20:17 → M ED INP 20:18
PROVIDERS: ADMIT Family Medicine; ATTEND Family Medicine
DX: R53.1 Weakness (principal); W19.XXXA Unspecified fall, initial encounter; M62.82 Rhabdomyolysis; M48.02 Spinal stenosis, cervical region; I10 Essential (primary) hypertension; E78.00 Pure hypercholesterolemia, unspecified; E11.9 Type 2 diabetes mellitus without complications; M06.2 Rheumatoid bursitis; M48.061 Spinal stenosis, lumbar region without neurogenic claudication; M43.26 Fusion of spine, lumbar region; R32 Unspecified urinary incontinence; E03.9 Hypothyroidism, unspecified; E66.9 Obesity, unspecified; M32.9 Systemic lupus erythematosus, unspecified; M35.3 Polymyalgia rheumatica; Z79.84 Long term (current) use of oral hypoglycemic drugs; Z79.899 Other long term (current) drug therapy; Z88.5 Allergy status to narcotic agent; Z88.8 Allergy status to other drugs, medicaments and biological substances; Y99.9 Unspecified external cause status
CPT/HCPCS: 36415; 36600; 70450; 71045; 72125; 80047; 80048; 80307; 81000; 81015; 82077; 82550; 82553; 82803; 83036; 83605; 83735; 84439; 84443; 84484; 85025; 85027; 85610; 87086; 87486; 87581; 87633; 87798; 93005; 93041; 94760; 96372; 96374; 96376; 99285; J1650; J3475

== ENCOUNTER → 2022-02-01 | Outpatient (CLI) | payer MEDICARE, BC, OTHER ==
[~2022-02-01] MED LIST changes: +FOLI1TAB11 PO
[2022-02-01 15:18] LABS: ALBUMIN 3.7 GM/DL (3.2-5.2); BILIRUBIN,TOTAL 0.8 MG/DL (0.2-1.0); CALCIUM LEVEL 9.8 MG/DL (8.8-10.2); CREATININE FOR GFR 1.44 MG/DL (0.55-1.30); GLOMERULAR FILTRATION RATE 38.1 (>39); POTASSIUM SERUM 4.3 MEQ/L (3.5-5.1); TOTAL PROTEIN 6.7 GM/DL (6.4-8.2)
== END ==
LOC: M LAB 13:50
PROVIDERS: ATTEND Physician Assistant
DX: I12.9 Hypertensive chronic kidney disease with stage 1 through stage 4 chronic kidney disease, or unspecified chronic kidney disease (principal); N18.9 Chronic kidney disease, unspecified

== ENCOUNTER → 2022-02-14 | Outpatient (CLI) | payer MEDICARE, BC, OTHER ==
[~2022-02-14] MED LIST changes: +CALT1TAB PO; +HYDR-3490 PO
== END ==
LOC: M LABSMTC 10:22
PROVIDERS: ATTEND Anesthesiology
DX: Z01.812 Encounter for preprocedural laboratory examination (principal); Z20.822 Contact with and (suspected) exposure to COVID-19

== ENCOUNTER 2022-02-17 06:42 | Day surgery (SDC) | payer MEDICARE, BC, OTHER ==
[~2022-02-17] VITALS: Ht 165.1 cm; Wt 83.5 kg
[~2022-02-17 06:42] MED LIST changes: +NS 1,000 ML IV ONE
[2022-02-17] MEDS ORDERED: propofoL 200 MG/20 ML VIAL As Ordered ONE ×2 (08:11→08:30)
[2022-02-17] MEDS ORDERED: LIDOCAINE 2% 100MG/5ML SDV (FOR ANES.) As Ordered ONE (08:11)
[2022-02-17 08:57] VITALS: BP 123/60
== END 2022-02-17 09:06 | disposition home or self-care (01) ==
LOC: M OPP 06:42
PROVIDERS: ATTEND Surgery
DX: Z86.010 Personal history of colon polyps (principal); K57.30 Diverticulosis of large intestine without perforation or abscess without bleeding; Z79.02 Long term (current) use of antithrombotics/antiplatelets; Z79.2 Long term (current) use of antibiotics; Z79.51 Long term (current) use of inhaled steroids; Z79.84 Long term (current) use of oral hypoglycemic drugs; Z79.899 Other long term (current) drug therapy; Z88.5 Allergy status to narcotic agent; Z88.8 Allergy status to other drugs, medicaments and biological substances; E11.9 Type 2 diabetes mellitus without complications; I10 Essential (primary) hypertension; E03.9 Hypothyroidism, unspecified; M35.3 Polymyalgia rheumatica; M32.9 Systemic lupus erythematosus, unspecified

== ENCOUNTER → 2022-04-29 | Outpatient (CLI) | payer MEDICARE, BC, OTHER ==
[~2022-04-29] MED LIST changes: -NS 1,000 ML IV ONE
[2022-04-29 13:39] LABS: BASO % 0.3 % (0.0-1.0); EOS % 0.6 % (0.0-3.0); HEMATOCRIT 39.1 % (36.0-47.0); HEMOGLOBIN 11.8 g/dl (12.0-15.5); LYMPH # 2.4 10^3/uL (1.5-5.0); MEAN CORPUSCULAR HEMOGLOBIN 25.1 pg (27.0-33.0); MEAN CORPUSCULAR HGB CONC 30.2 g/dl (32.0-36.5); MONO # 0.5 10^3/uL (0.0-0.8); MONO % 6.7 % (2.0-8.0); NEUTROPHILS # 4.2 10^3/uL (1.5-8.5); NEUTROPHILS % 59.1 % (36.0-66.0); PLATELET COUNT, AUTOMATED 345 10^3/uL (150-450); RED BLOOD COUNT 4.71 10^6/uL (4.00-5.40); WHITE BLOOD COUNT 7.1 10^3/uL (4.0-10.0)
[2022-04-29 15:17] LABS: ERYTHROCYTE SEDIMENTATION RATE 33 mm/hr (0-30)
[2022-04-29 15:34] LABS: C REACTIVE PROTEIN QUANTITATIV 0.4 MG/DL (<1.0)
[2022-04-29 15:35] LABS: ALBUMIN 3.7 G/DL (3.2-5.2); BILIRUBIN,TOTAL 0.5 MG/DL (0.3-1.2); CALCIUM LEVEL 9.6 MG/DL (8.3-10.6); CREATININE FOR GFR 1.28 MG/DL (0.55-1.30); GLOMERULAR FILTRATION RATE 43.6 (>39); POTASSIUM SERUM 4.8 MMOL/L (3.5-5.1); THYROID STIMULATING HORMONE 0.929 uIU/ML (0.55-4.78); TOTAL PROTEIN 6.7 G/DL (5.7-8.2)
[2022-04-29 15:36] LABS: FREE T4 1.55 NG/DL (0.89-1.76)
== END ==
LOC: M LAB 12:54
PROVIDERS: ATTEND Physician Assistant
DX: R63.4 Abnormal weight loss (principal); Z79.899 Other long term (current) drug therapy

== ENCOUNTER → 2022-05-18 | Outpatient (CLI) | payer MEDICARE, BC, OTHER ==
[~2022-05-18] MED LIST changes: +GASTROGRAFIN SOLUTION 30ML As Ordered ONE; +ISOVUE-370 76% 100ML VIAL As Ordered ONE
== END ==
LOC: M RAD 09:12
PROVIDERS: ATTEND Physician Assistant
DX: R63.4 Abnormal weight loss (principal); K57.30 Diverticulosis of large intestine without perforation or abscess without bleeding; I25.10 Atherosclerotic heart disease of native coronary artery without angina pectoris; I70.0 Atherosclerosis of aorta; Z90.49 Acquired absence of other specified parts of digestive tract
CPT/HCPCS: 71260; 74177; Q9963; Q9967

== ENCOUNTER → 2022-10-04 | Outpatient (CLI) | payer MEDICARE, BC, OTHER ==
[~2022-10-04] MED LIST changes: -GASTROGRAFIN SOLUTION 30ML As Ordered ONE; -ISOVUE-370 76% 100ML VIAL As Ordered ONE
[2022-10-04 18:56] LABS: APPEARANCE, URINE CLEAR (CLEAR); BACTERIA, URINE AUTO NEGATIVE (NEGATIVE); BILIRUBIN, URINE AUTO NEGATIVE (NEGATIVE); BLOOD, URINE BLOOD NEGATIVE (NEGATIVE); COLOR, URINE YELLOW (YELLOW); GLUCOSE, URINE (UA) AUTO NEGATIVE (NEGATIVE); KETONE, URINE AUTO NEGATIVE (NEGATIVE); LEUKOCYTE ESTERASE, URINE AUTO 1+ (NEGATIVE); NITRITE, URINE AUTO NEGATIVE (NEGATIVE); PROTEIN, URINE AUTO NEGATIVE (NEGATIVE); RBC, URINE AUTO 0 /HPF (0-3); SPECIFIC GRAVITY URINE AUTO 1.015 (1.002-1.035); SQUAMOUS EPITHELIAL CELL UR AU 3 /HPF (0-6); UROBILINOGEN, URINE AUTO 0.2 mg/dL (0.0-2.0); WBC, URINE AUTO 2 /HPF (0-3)
[2022-10-04 18:59] LABS: BASO % 0.1 % (0.0-1.0); EOS # 0.1 10^3/uL (0.0-0.5); EOS % 1.2 % (0.0-3.0); HEMATOCRIT 37.4 % (36.0-47.0); HEMOGLOBIN 12.2 g/dl (12.0-15.5); LYMPH # 1.6 10^3/uL (1.5-5.0); LYMPH % 20.7 % (24.0-44.0); MEAN CORPUSCULAR HEMOGLOBIN 26.6 pg (27.0-33.0); MEAN CORPUSCULAR HGB CONC 32.6 g/dl (32.0-36.5); MEAN CORPUSCULAR VOLUME 81.7 fl (80.0-96.0); MONO # 0.5 10^3/uL (0.0-0.8); MONO % 6.5 % (2.0-8.0); NEUTROPHILS # 5.4 10^3/uL (1.5-8.5); NEUTROPHILS % 71.1 % (36.0-66.0); PLATELET COUNT, AUTOMATED 320 10^3/uL (150-450); RED BLOOD COUNT 4.58 10^6/uL (4.00-5.40); WHITE BLOOD COUNT 7.6 10^3/uL (4.0-10.0)
[2022-10-04 19:17] LABS: TOTAL PROTEIN,RANDOM URINE 8.1 MG/DL (0.0-14.0)
[2022-10-04 19:22] LABS: CREATININE,RANDOM URINE 75.8 MG/DL
[2022-10-04 19:24] LABS: ALBUMIN 4.2 G/DL (3.2-5.2); ALKALINE PHOSPHATASE 103 U/L (46-116); ALT/SGPT < 9 U/L (7.0-40); AST/SGOT 9 U/L (<34); BILIRUBIN,DIRECT 0.2 MG/DL (<0.4); BILIRUBIN,TOTAL 0.6 MG/DL (0.3-1.2); BLOOD UREA NITROGEN 36 MG/DL (9-23); CALCIUM LEVEL 9.7 MG/DL (8.3-10.6); CARBON DIOXIDE LEVEL 27 MMOL/L (20-31); CHLORIDE LEVEL 101 MMOL/L (98-107); CREATININE FOR GFR 1.22 MG/DL (0.55-1.30); GLUCOSE, FASTING 96 MG/DL (74-106); POTASSIUM SERUM 4.3 MMOL/L (3.5-5.1); SODIUM LEVEL 138 MMOL/L (136-145); TOTAL PROTEIN 7.3 G/DL (5.7-8.2)
[2022-10-04 19:26] LABS: TOTAL 25(OH) VITAMIN D 47.4 NG/ML (20.0-100.0)
[2022-10-04 19:41] LABS: ERYTHROCYTE SEDIMENTATION RATE 64 mm/hr (0-30)
[2022-10-04 19:44] LABS: C REACTIVE PROTEIN QUANTITATIV < 0.40 MG/DL (<1.0)
[2022-10-04 19:45] LABS: COMPLEMENT C3 134.6 MG/DL (90.0-170.0); COMPLEMENT C4 28.6 MG/DL (12-36)
== END ==
LOC: M LAB 17:14
PROVIDERS: ATTEND Internal Medicine
DX: M32.9 Systemic lupus erythematosus, unspecified (principal); E55.9 Vitamin D deficiency, unspecified

== ENCOUNTER → 2022-10-06 | Outpatient (REF) | payer MEDICARE, OTHER ==
[2022-10-06 16:51] LABS: HEPATITIS B SURFACE ANTIBODY NEGATIVE (POSITIVE)
[2022-10-06 17:04] LABS: HEPATITIS B SURFACE ANTIGEN NEGATIVE (NEGATIVE)
[2022-10-06 17:25] LABS: HEPATITIS C VIRUS ABY INDEX 0.1 INDEX (<0.8)
== END ==
LOC: M SFHCRHEU 14:58
PROVIDERS: ATTEND Internal Medicine
DX: N18.31 Chronic kidney disease, stage 3a (principal); Z11.59 Encounter for screening for other viral diseases; M32.9 Systemic lupus erythematosus, unspecified

== ENCOUNTER 2022-10-31 09:56 | Outpatient (CLI) | payer MEDICARE, BC, OTHER ==
[~2022-10-31] VITALS: Ht 165.1 cm; Wt 81.8 kg
[~2022-10-31 09:56] MED LIST changes: +ALBUTEROL SULFATE 2.5MG/0.5ML INH NEB SOLN INH PRN; +EPINEPHrine INJ 1 MG/ML 1ML AMP IM PRN; +diphenhydrAMINE 50MG/ML VIAL IV PRN; +methylPREDNISolone 125MG 2ML VIAL IV PRN
[2022-10-31 10:30] VITALS: BP 125/85
[2022-10-31] MEDS ORDERED: diphenhydrAMINE 25MG CAP PO ONE (10:30)
[2022-10-31] MEDS ORDERED: BELIMUMAB in NS 250 ML OVER 1 HOUR IV ONE (10:30)
[2022-10-31] MEDS ORDERED: ACETAMINOPHEN TAB 650MG DOSE (2X325MG) PO ONE (10:30)
[2022-10-31 12:40] VITALS: BP 133/60
== END 2022-10-31 12:40 ==
LOC: M INFU 09:56
PROVIDERS: ATTEND Internal Medicine
DX: M32.9 Systemic lupus erythematosus, unspecified (principal); Z88.5 Allergy status to narcotic agent; Z88.8 Allergy status to other drugs, medicaments and biological substances
CPT/HCPCS: 96365; J0490

== ENCOUNTER 2022-11-14 09:29 | Outpatient (CLI) | payer MEDICARE, BC, OTHER ==
[~2022-11-14] VITALS: Ht 165.1 cm; Wt 83.4 kg
[~2022-11-14 09:29] MED LIST changes: -HYDR200T3 PO; +HYDR200T46 PO
[2022-11-14 10:00] VITALS: BP_SYST 108; BP_SYST 121; BP_DIAS 54; BP_DIAS 61; O2SAT 96; O2SAT 97
[2022-11-14] MEDS ORDERED: BELIMUMAB in NS 250 ML OVER 1 HOUR IV ONE (10:00)
[2022-11-14] MEDS ORDERED: ACETAMINOPHEN 650MG ER TAB (TYLENOL ARTHRITIS) PO ONE (10:00)
[2022-11-14] MEDS ORDERED: NS 1,000 ML IV SCH (10:00)
[2022-11-14] MEDS ORDERED: diphenhydrAMINE 50MG CAP PO ONE (10:00)
[2022-11-14 12:05] VITALS: BP 126/64; O2SAT 99
== END 2022-11-14 12:05 | disposition home or self-care (01) ==
LOC: M INFU 09:29
PROVIDERS: ATTEND Internal Medicine
DX: M32.9 Systemic lupus erythematosus, unspecified (principal); Z88.5 Allergy status to narcotic agent; Z88.8 Allergy status to other drugs, medicaments and biological substances
CPT/HCPCS: 96365; J0490

== ENCOUNTER 2022-11-30 11:00 | Outpatient (CLI) | payer MEDICARE, BC, OTHER ==
[~2022-11-30] VITALS: Ht 165.1 cm; Wt 83.0 kg
[2022-11-30 10:55] VITALS: BP 133/62; O2SAT 100
[~2022-11-30 11:00] MED LIST changes: +ACETAMINOPHEN 650MG ER TAB (TYLENOL ARTHRITIS) PO ONE; +BELIMUMAB IV ONE; +NS IV ONE; +diphenhydrAMINE 25MG CAP PO ONE
[2022-11-30 13:10] VITALS: BP 130/63; O2SAT 96
== END 2022-11-30 13:10 ==
LOC: M INFU 11:00
PROVIDERS: ATTEND Internal Medicine
DX: M32.9 Systemic lupus erythematosus, unspecified (principal); Z88.5 Allergy status to narcotic agent; Z88.8 Allergy status to other drugs, medicaments and biological substances
CPT/HCPCS: 96365; J0490

== ENCOUNTER → 2022-12-29 | Outpatient (CLI) | payer MEDICARE, BC, OTHER ==
[~2022-12-29] MED LIST changes: -ACETAMINOPHEN 650MG ER TAB (TYLENOL ARTHRITIS) PO ONE; -ALBUTEROL SULFATE 2.5MG/0.5ML INH NEB SOLN INH PRN; -BELIMUMAB IV ONE; -EPINEPHrine INJ 1 MG/ML 1ML AMP IM PRN; -NS IV ONE; -diphenhydrAMINE 25MG CAP PO ONE; -diphenhydrAMINE 50MG/ML VIAL IV PRN; -methylPREDNISolone 125MG 2ML VIAL IV PRN
[2022-12-29 17:43] LABS: BASO % 0.2 % (0.0-1.0); EOS # 0.2 10^3/uL (0.0-0.5); EOS % 3.6 % (0.0-3.0); HEMATOCRIT 34.6 % (36.0-47.0); LYMPH # 1.5 10^3/uL (1.5-5.0); LYMPH % 23.1 % (24.0-44.0); MEAN CORPUSCULAR HEMOGLOBIN 26.4 pg (27.0-33.0); MEAN CORPUSCULAR HGB CONC 31.8 g/dl (32.0-36.5); MONO # 0.6 10^3/uL (0.0-0.8); MONO % 9.4 % (2.0-8.0); NEUTROPHILS % 63.4 % (36.0-66.0); PLATELET COUNT, AUTOMATED 274 10^3/uL (150-450); RED BLOOD COUNT 4.17 10^6/uL (4.00-5.40); WHITE BLOOD COUNT 6.3 10^3/uL (4.0-10.0)
[2022-12-29 18:02] LABS: ERYTHROCYTE SEDIMENTATION RATE 73 mm/hr (0-30)
[2022-12-29 18:07] LABS: ALBUMIN 3.7 G/DL (3.2-5.2); BILIRUBIN,TOTAL 0.9 MG/DL (0.3-1.2); CALCIUM LEVEL 9.5 MG/DL (8.3-10.6); CREATININE FOR GFR 1.91 MG/DL (0.55-1.30); GLOMERULAR FILTRATION RATE 27.4 (>39); POTASSIUM SERUM 4.5 MMOL/L (3.5-5.1); TOTAL PROTEIN 6.8 G/DL (5.7-8.2)
[2022-12-29 18:09] LABS: FREE T4 1.41 NG/DL (0.89-1.76); THYROID STIMULATING HORMONE 1.542 uIU/ML (0.55-4.78)
[2022-12-31 01:42] LABS: C REACTIVE PROTEIN QUANTITATIV 4.7 MG/DL (<1.0)
== END ==
LOC: M LAB 17:03
PROVIDERS: ATTEND Nurse Practitioner Adult Health
DX: R19.7 Diarrhea, unspecified (principal)

== ENCOUNTER → 2022-12-30 | Outpatient (CLI) | payer MEDICARE, BC, OTHER ==
[~2022-12-30] MED LIST changes: +GASTROGRAFIN SOLUTION 30ML As Ordered ONE
== END ==
LOC: M RAD 08:28
PROVIDERS: ATTEND Nurse Practitioner Adult Health
DX: R19.7 Diarrhea, unspecified (principal)
CPT/HCPCS: 74176; 87507; Q9963

== ENCOUNTER → 2023-01-19 | Outpatient (REF) | payer MEDICARE, OTHER ==
[~2023-01-19] MED LIST changes: -GASTROGRAFIN SOLUTION 30ML As Ordered ONE
== END ==
LOC: M LAB REF 11:21
PROVIDERS: ATTEND Nurse Practitioner Family
DX: R30.0 Dysuria (principal); N39.0 Urinary tract infection, site not specified

== ENCOUNTER → 2023-01-19 | Outpatient (CLI) | payer MEDICARE, BC, OTHER | LOC: M RAD 07:39 | PROVIDERS: ATTEND Internal Medicine Nephrology | DX: I70.1 Atherosclerosis of renal artery (principal) ==

== ENCOUNTER 2023-01-25 18:54 | Inpatient (IN) | payer MEDICARE, BC, OTHER ==
[~2023-01-25] VITALS: Ht 165.1 cm; Wt 59.1 kg
[2023-01-25] MEDS ORDERED: ACETAMINOPHEN TAB 650MG DOSE (2X325MG) PO ONE (19:25)
[2023-01-25 19:48] LABS: BASO % 0.3 % (0.0-1.0); HEMATOCRIT 34.3 % (36.0-47.0); HEMOGLOBIN 11.1 g/dl (12.0-15.5); LYMPH # 0.8 10^3/uL (1.5-5.0); LYMPH % 10.5 % (24.0-44.0); MEAN CORPUSCULAR HEMOGLOBIN 26.1 pg (27.0-33.0); MEAN CORPUSCULAR HGB CONC 32.4 g/dl (32.0-36.5); MEAN CORPUSCULAR VOLUME 80.5 fl (80.0-96.0); MONO # 0.4 10^3/uL (0.0-0.8); MONO % 4.9 % (2.0-8.0); NEUTROPHILS # 6.1 10^3/uL (1.5-8.5); NEUTROPHILS % 83.9 % (36.0-66.0); PLATELET COUNT, AUTOMATED 221 10^3/uL (150-450); RED BLOOD COUNT 4.26 10^6/uL (4.00-5.40); WHITE BLOOD COUNT 7.3 10^3/uL (4.0-10.0)
[2023-01-25 20:13] LABS: CK-MB VALUE MASS < 1.0 NG/ML (<3.6)
[2023-01-25 20:14] LABS: ETHYL ALCOHOL (ETHANOL) < 0.003 % (0.000-0.010)
[2023-01-25 20:15] LABS: CPK CREATINE PHOSPHOKINASE 99 U/L (34-145); MB/CK RELATIVE INDEX 1.01 (< OR =4)
[2023-01-25 20:16] LABS: ALBUMIN 3.5 G/DL (3.2-5.2); ALKALINE PHOSPHATASE 96 U/L (46-116); ALT/SGPT 11 U/L (7.0-40); AST/SGOT 13 U/L (<34); BILIRUBIN,DIRECT 0.4 MG/DL (<0.4); BILIRUBIN,TOTAL 1.4 MG/DL (0.3-1.2); BLOOD UREA NITROGEN 21 MG/DL (9-23); CALCIUM LEVEL 9.2 MG/DL (8.3-10.6); CARBON DIOXIDE LEVEL 26 MMOL/L (20-31); CHLORIDE LEVEL 98 MMOL/L (98-107); GLOMERULAR FILTRATION RATE 42.7 (>39); GLUCOSE, FASTING 149 MG/DL (74-106); POTASSIUM SERUM 4.2 MMOL/L (3.5-5.1); SODIUM LEVEL 133 MMOL/L (136-145); TOTAL PROTEIN 6.7 G/DL (5.7-8.2)
[2023-01-25 20:18] LABS: THYROID STIMULATING HORMONE 0.431 uIU/ML (0.55-4.78)
[2023-01-25] MEDS ORDERED: IBUPROFEN 600MG TAB PO ONE (20:25)
[2023-01-25] MEDS ORDERED: AZITHROMYCIN 250MG TABLET PO ONE (21:15)
[2023-01-25] MEDS ORDERED: cefTRIAXone SOD 1 GM in D5W MINI-BAG PLUS 50 ML IV ONE (21:15)
[2023-01-25] MEDS ORDERED: LOTR52CA PO (22:39)
[2023-01-25] MEDS ORDERED: CALTTAB6 PO (22:39)
[2023-01-25] MEDS ORDERED: CHOL25TA9 PO (22:39)
[2023-01-25] MEDS ORDERED: ASCO500T PO (22:39)
[2023-01-25] MEDS ORDERED: HYDROMORPHONE HCL 0.5 MG/ 0.5 ML SYRINGE IV PRN (23:55)
[2023-01-26] MEDS ORDERED: ISOVUE-370 76% 100ML VIAL As Ordered ONE (00:02)
[2023-01-26] MEDS ORDERED: VESI10TA2 PO (00:08)
[2023-01-26] MEDS ORDERED: HOME MED LIST COMPLETE! XX SCH (00:10)
[2023-01-26] MEDS ORDERED: ALBUTEROL 90 MCG/ACT 8GM HFA INHALER INH PRN (02:20)
[2023-01-26] MEDS ORDERED: NS 1,000 ML IV ONE (02:30)
[2023-01-26] MEDS ORDERED: LEVOTHYROXINE 125MCG TABLET (0.125MG) PO SCH (06:00)
[2023-01-26] MEDS ORDERED: HEPARIN SOD (PORCINE) 5000UNITS/ML 1ML VIAL/SYRINGE SC SCH (06:00)
[2023-01-26 06:01] LABS: HEMOGLOBIN 10.2 g/dl (12.0-15.5); MEAN CORPUSCULAR HGB CONC 31.9 g/dl (32.0-36.5); MEAN CORPUSCULAR VOLUME 81.4 fl (80.0-96.0); PLATELET COUNT, AUTOMATED 183 10^3/uL (150-450); RED BLOOD COUNT 3.93 10^6/uL (4.00-5.40); WHITE BLOOD COUNT 6.5 10^3/uL (4.0-10.0)
[2023-01-26 06:45] LABS: PROCALCITONIN 0.26 ng/ml
[2023-01-26 06:49] LABS: BILIRUBIN,TOTAL 0.8 MG/DL (0.3-1.2); CALCIUM LEVEL 8.3 MG/DL (8.3-10.6); CREATININE FOR GFR 1.18 MG/DL (0.55-1.30); GLOMERULAR FILTRATION RATE 47.8 (>39); POTASSIUM SERUM 3.9 MMOL/L (3.5-5.1)
[2023-01-26] MEDS ORDERED: ALPRAZolam 0.25 MG TAB PO ONE (07:20)
[2023-01-26 08:02] VITALS: TEMP 97.2
[2023-01-26] MEDS ORDERED: SOLIFENACIN 5 MG TAB PO SCH (09:00)
[2023-01-26] MEDS ORDERED: AZITHROMYCIN 250MG TABLET PO SCH (09:00)
[2023-01-26] MEDS ORDERED: amLODIPine 5 MG TAB PO SCH (09:00)
[2023-01-26] MEDS ORDERED: BENAZEPRIL 20 MG TAB PO SCH (09:00)
[2023-01-26 09:45] VITALS: BP 139/75
[2023-01-26 09:47] VITALS: BP 127/91; O2SAT 95
[2023-01-26] MEDS ORDERED: AUGM500T34 PO (15:35)
[2023-01-26] MEDS ORDERED: ATORVASTATIN 20 MG TAB PO SCH (21:00)
[2023-01-27] MEDS ORDERED: cefTRIAXone SOD 1 GM in D5W MINI-BAG PLUS 50 ML IV SCH (09:00)
== END 2023-01-26 15:42 | disposition home or self-care (01) | DRG 864 ==
LOC: EDBD 18:54 → M ED 18:54 → M ED INP 21:10
PROVIDERS: ADMIT Internal Medicine; ATTEND Internal Medicine
DX: R50.9 Fever, unspecified (principal); E87.1 Hypo-osmolality and hyponatremia; D64.9 Anemia, unspecified; E03.9 Hypothyroidism, unspecified; I10 Essential (primary) hypertension; L93.0 Discoid lupus erythematosus; Z96.652 Presence of left artificial knee joint; M35.3 Polymyalgia rheumatica; Z79.899 Other long term (current) drug therapy; Z88.8 Allergy status to other drugs, medicaments and biological substances; Z88.5 Allergy status to narcotic agent

== ENCOUNTER 2023-03-22 10:50 | Outpatient (CLI) | payer MEDICARE, BC, OTHER ==
[~2023-03-22] VITALS: Ht 165.1 cm; Wt 82.5 kg
[2023-03-22 10:50] VITALS: BP 165/74; O2SAT 98
[~2023-03-22 10:50] MED LIST changes: +ALBUTEROL SULFATE 2.5MG/0.5ML INH NEB SOLN INH PRN; +ASCO500T PO; +AUGM500T34 PO; +CALTTAB6 PO; +CHOL25TA9 PO; +EPINEPHrine INJ 1 MG/ML 1ML AMP IM PRN; +LOTR52CA PO; +VESI10TA2 PO; +diphenhydrAMINE 50MG/ML VIAL IV PRN; +methylPREDNISolone 125MG 2ML VIAL IV PRN
[2023-03-22] MEDS ORDERED: NS IV ONE (11:00)
[2023-03-22] MEDS ORDERED: BELIMUMAB IV ONE (11:00)
[2023-03-22] MEDS ORDERED: ACETAMINOPHEN 650MG ER TAB (TYLENOL ARTHRITIS) PO ONE (11:05)
[2023-03-22] MEDS ORDERED: diphenhydrAMINE 50MG PO PRIOR TO INFUSION PO ONE (11:05)
[2023-03-22 13:20] VITALS: BP 160/80; O2SAT 100
== END 2023-03-22 13:20 ==
LOC: M INFU 10:50
PROVIDERS: ATTEND Internal Medicine
DX: M32.9 Systemic lupus erythematosus, unspecified (principal); Z88.5 Allergy status to narcotic agent; Z88.8 Allergy status to other drugs, medicaments and biological substances
CPT/HCPCS: 96365; J0490

== ENCOUNTER → 2023-03-23 | Outpatient (CLI) | payer MEDICARE, BC, OTHER ==
[~2023-03-23] MED LIST changes: -ALBUTEROL SULFATE 2.5MG/0.5ML INH NEB SOLN INH PRN; -EPINEPHrine INJ 1 MG/ML 1ML AMP IM PRN; -diphenhydrAMINE 50MG/ML VIAL IV PRN; -methylPREDNISolone 125MG 2ML VIAL IV PRN
== END ==
LOC: M SLEEP 20:00
PROVIDERS: ATTEND Internal Medicine Pulmonary Disease
DX: G47.33 Obstructive sleep apnea (adult) (pediatric) (principal)

== ENCOUNTER → 2023-04-14 | Outpatient (REF) | payer MEDICARE, BC, OTHER | LOC: M SFHCDERM 14:26 | PROVIDERS: ATTEND Nurse Practitioner Family | DX: D23.30 Other benign neoplasm of skin of unspecified part of face (principal) ==

== ENCOUNTER 2023-04-19 11:00 | Outpatient (CLI) | payer MEDICARE, BC, OTHER ==
[~2023-04-19] VITALS: Ht 165.1 cm; Wt 83.0 kg
[2023-04-19 11:00] VITALS: BP 123/71; O2SAT 95
[~2023-04-19 11:00] MED LIST changes: +ACETAMINOPHEN 650MG PO PRIOR TO INFUSION PO ONE; +ALBUTEROL SULFATE 2.5MG/0.5ML INH NEB SOLN INH PRN; +BELIMUMAB IV ONE; +EPINEPHrine INJ 1 MG/ML 1ML AMP IM PRN; +NS IV ONE; +diphenhydrAMINE 50MG PO PRIOR TO INFUSION PO ONE; +diphenhydrAMINE 50MG/ML VIAL IV PRN; +methylPREDNISolone 125MG 2ML VIAL IV PRN
[2023-04-19 12:54] VITALS: BP 148/70; O2SAT 96
== END 2023-04-19 12:55 ==
LOC: M INFU 11:00
PROVIDERS: ATTEND Internal Medicine
DX: M32.9 Systemic lupus erythematosus, unspecified (principal); Z88.5 Allergy status to narcotic agent; Z88.8 Allergy status to other drugs, medicaments and biological substances
CPT/HCPCS: 96365; J0490

== ENCOUNTER 2023-05-25 16:20 | Outpatient (CLI) | payer MEDICARE, BC, OTHER ==
[~2023-05-25] VITALS: Ht 165.1 cm; Wt 83.1 kg
[~2023-05-25 16:20] MED LIST changes: -ACETAMINOPHEN 650MG PO PRIOR TO INFUSION PO ONE; -BELIMUMAB IV ONE; -NS IV ONE; -diphenhydrAMINE 50MG PO PRIOR TO INFUSION PO ONE
[2023-05-25] MEDS ORDERED: diphenhydrAMINE 50MG PO PRIOR TO INFUSION PO ONE (16:25)
[2023-05-25] MEDS ORDERED: ACETAMINOPHEN 650MG PO PRIOR TO INFUSION PO ONE (16:25)
[2023-05-25 16:31] VITALS: BP 115/85; TEMP 98.2; O2SAT 97
[2023-05-25] MEDS ORDERED: BELIMUMAB in NS 250 ML OVER 1 HOUR IV ONE (17:00)
[2023-05-25 18:24] VITALS: BP 170/79; O2SAT 96
== END 2023-05-25 18:25 | disposition home or self-care (01) ==
LOC: M INFU 16:20
PROVIDERS: ATTEND Internal Medicine
DX: M32.9 Systemic lupus erythematosus, unspecified (principal); Z88.5 Allergy status to narcotic agent; Z88.8 Allergy status to other drugs, medicaments and biological substances
CPT/HCPCS: 96365; J0490

== ENCOUNTER 2023-06-22 14:09 | Outpatient (CLI) | payer MEDICARE, BC, OTHER ==
[~2023-06-22] VITALS: Ht 165.1 cm; Wt 84.0 kg
[2023-06-22] MEDS ORDERED: NS IV ONE (14:40)
[2023-06-22] MEDS ORDERED: ACETAMINOPHEN TAB 650MG DOSE (2X325MG) PO ONE (14:40)
[2023-06-22] MEDS ORDERED: diphenhydrAMINE 50MG CAP PO ONE (14:40)
[2023-06-22] MEDS ORDERED: BELIMUMAB IV ONE (14:40)
[2023-06-22 14:41] VITALS: BP 131/63; O2SAT 97
[2023-06-22 16:59] VITALS: BP 144/67; O2SAT 99
== END 2023-06-22 17:02 | disposition home or self-care (01) ==
LOC: M INFU 14:09
PROVIDERS: ATTEND Internal Medicine
DX: M32.9 Systemic lupus erythematosus, unspecified (principal); Z88.5 Allergy status to narcotic agent; Z88.8 Allergy status to other drugs, medicaments and biological substances
CPT/HCPCS: 96365; J0490

== ENCOUNTER → 2023-07-19 | Outpatient (CLI) | payer MEDICARE, BC, OTHER ==
[~2023-07-19] MED LIST changes: -ALBUTEROL SULFATE 2.5MG/0.5ML INH NEB SOLN INH PRN; -EPINEPHrine INJ 1 MG/ML 1ML AMP IM PRN; -diphenhydrAMINE 50MG/ML VIAL IV PRN; -methylPREDNISolone 125MG 2ML VIAL IV PRN
== END ==
LOC: M RAD 10:41
PROVIDERS: ATTEND Physician Assistant
DX: M54.59 Other low back pain (principal)

== ENCOUNTER 2023-07-20 14:15 | Outpatient (CLI) | payer MEDICARE, BC, OTHER ==
[2023-07-20 14:15] VITALS: BP 134/59; O2SAT 97
[~2023-07-20 14:15] MED LIST changes: +ALBUTEROL SULFATE 2.5MG/0.5ML INH NEB SOLN INH PRN; +EPINEPHrine INJ 1 MG/ML 1ML AMP IM PRN; +diphenhydrAMINE 50MG/ML VIAL IV PRN; +methylPREDNISolone 125MG 2ML VIAL IV PRN
[2023-07-20] MEDS: ACETAMINOPHEN 650MG PO PRIOR TO INFUSION PO ONE (14:35)
[2023-07-20] MEDS: diphenhydrAMINE 50MG PO PRIOR TO INFUSION PO ONE (14:35)
[2023-07-20] MEDS: NS IV ONE (15:12)
[2023-07-20] MEDS: BELIMUMAB IV ONE (15:12)
[2023-07-20 16:10] VITALS: BP 123/83; O2SAT 96
== END 2023-07-20 16:20 ==
LOC: M INFU 14:15
PROVIDERS: ATTEND Internal Medicine
DX: M32.9 Systemic lupus erythematosus, unspecified (principal); Z88.5 Allergy status to narcotic agent; Z88.8 Allergy status to other drugs, medicaments and biological substances
CPT/HCPCS: 96365; J0490

== ENCOUNTER → 2023-07-20 | Outpatient (CLI) | payer MEDICARE, BC, OTHER ==
[2023-07-20 18:20] LABS: CALCIUM LEVEL 9.6 MG/DL (8.3-10.6); CREATININE FOR GFR 1.18 MG/DL (0.55-1.30); GLOMERULAR FILTRATION RATE 47.7 (>39); POTASSIUM SERUM 5.1 MMOL/L (3.5-5.1)
== END ==
LOC: M LAB 16:27
PROVIDERS: ATTEND Physician Assistant
DX: I12.9 Hypertensive chronic kidney disease with stage 1 through stage 4 chronic kidney disease, or unspecified chronic kidney disease (principal); N18.9 Chronic kidney disease, unspecified

== ENCOUNTER 2023-08-17 14:20 | Outpatient (CLI) | payer MEDICARE, BC, OTHER ==
[~2023-08-17] VITALS: Ht 165.1 cm; Wt 82.0 kg
[2023-08-17] MEDS: ACETAMINOPHEN TAB 650MG DOSE (2X325MG) PO ONE (14:00)
[2023-08-17 14:20] VITALS: BP_SYST 138; BP_DIAS 90; BP_DIAS 91; TEMP 97.2; O2SAT 96
[~2023-08-17 14:20] MED LIST changes: +ALBUTEROL SULFATE 2.5MG/0.5ML INH NEB SOLN INH PRN; +EPINEPHrine INJ 1 MG/ML 1ML AMP IM PRN; +diphenhydrAMINE 50MG/ML VIAL IV PRN; +methylPREDNISolone 125MG 2ML VIAL IV PRN
[2023-08-17] MEDS: diphenhydrAMINE 50MG CAP PO ONE (14:45)
[2023-08-17] MEDS: NS IV ONE (15:37)
[2023-08-17] MEDS: BELIMUMAB IV ONE (15:37)
[2023-08-17 16:46] VITALS: BP 137/63; O2SAT 98
== END 2023-08-17 16:50 ==
LOC: M INFU 14:20
PROVIDERS: ATTEND Internal Medicine
DX: M32.9 Systemic lupus erythematosus, unspecified (principal); Z88.8 Allergy status to other drugs, medicaments and biological substances; G47.33 Obstructive sleep apnea (adult) (pediatric)
CPT/HCPCS: 95811; 96365; J0490

== ENCOUNTER → 2023-08-17 | Outpatient (CLI) | payer MEDICARE, BC ==
[~2023-08-17] MED LIST changes: -ALBUTEROL SULFATE 2.5MG/0.5ML INH NEB SOLN INH PRN; -EPINEPHrine INJ 1 MG/ML 1ML AMP IM PRN; -diphenhydrAMINE 50MG/ML VIAL IV PRN; -methylPREDNISolone 125MG 2ML VIAL IV PRN
== END ==
LOC: M SLEEP 20:00
PROVIDERS: ATTEND Internal Medicine Pulmonary Disease
DX: G47.33 Obstructive sleep apnea (adult) (pediatric) (principal)

== ENCOUNTER → 2024-01-28 | Outpatient (REF) | payer MEDICARE, OTHER ==
[~2024-01-28] MED LIST changes: -ALBUTEROL SULFATE 2.5MG/0.5ML INH NEB SOLN INH PRN; -EPINEPHrine INJ 1 MG/ML 1ML AMP IM PRN; -diphenhydrAMINE 50MG/ML VIAL IV PRN; -methylPREDNISolone 125MG 2ML VIAL IV PRN
== END ==
LOC: M LAB REF 20:36
PROVIDERS: ATTEND Physician Assistant
DX: R30.0 Dysuria (principal)

== ENCOUNTER → 2024-03-07 | Outpatient (CLI) | payer MEDICARE, OTHER ==
[2024-03-07 14:05] LABS: TOTAL IRON BINDING CAPACITY 377 UG/DL (250-425)
[2024-03-07 14:09] LABS: C REACTIVE PROTEIN QUANTITATIV < 0.40 MG/DL (<1.0)
[2024-03-07 14:10] LABS: ALBUMIN 4.1 G/DL (3.2-5.2); ALKALINE PHOSPHATASE 77 U/L (46-116); ALT/SGPT 19 U/L (7.0-40); AST/SGOT 9 U/L (<34); BILIRUBIN,TOTAL 0.8 MG/DL (0.3-1.2); BLOOD UREA NITROGEN 36 MG/DL (9-23); CALCIUM LEVEL 10.9 MG/DL (8.3-10.6); CARBON DIOXIDE LEVEL 26 MMOL/L (20-31); CHLORIDE LEVEL 99 MMOL/L (98-107); CK-MB VALUE MASS < 1.0 NG/ML (<3.6); CPK CREATINE PHOSPHOKINASE 60 U/L (34-145); CREATININE FOR GFR 1.41 MG/DL (0.55-1.30); FERRITIN 30.8 NG/ML (7.3-270.7); FREE T4 2.08 NG/DL (0.89-1.76); GLOMERULAR FILTRATION RATE 38.8 (>39); GLUCOSE, FASTING 115 MG/DL (74-106); IRON (FE) 99 UG/DL (50-170); MB/CK RELATIVE INDEX 1.66 (< OR =4); PERCENT SATURATION 26.3 % (13.2-45.0); POTASSIUM SERUM 5.5 MMOL/L (3.5-5.1); SODIUM LEVEL 133 MMOL/L (136-145); THYROID STIMULATING HORMONE 0.514 uIU/ML (0.55-4.78); TOTAL PROTEIN 7.3 G/DL (5.7-8.2)
== END ==
LOC: M PLALAB 11:48
PROVIDERS: ATTEND Family Medicine
DX: R07.9 Chest pain, unspecified (principal); Z79.899 Other long term (current) drug therapy

== ENCOUNTER → 2024-03-08 | Outpatient (CLI) | payer MEDICARE, OTHER ==
[~2024-03-08] MED LIST changes: +ISOVUE-370 76% 100ML VIAL As Ordered ONE
== END ==
LOC: M RAD 14:17
PROVIDERS: ATTEND Family Medicine
DX: R07.9 Chest pain, unspecified (principal); Z90.49 Acquired absence of other specified parts of digestive tract
CPT/HCPCS: 71275; Q9967

== ENCOUNTER → 2024-05-02 | Outpatient (CLI) | payer MEDICARE, BC ==
[~2024-05-02] MED LIST changes: -CYCL5TAB PO; +CYCL5TAB4 PO; -ISOVUE-370 76% 100ML VIAL As Ordered ONE
== END ==
LOC: M PLARAD 09:06
PROVIDERS: ATTEND Physician Assistant
DX: M25.552 Pain in left hip (principal)

== ENCOUNTER → 2025-05-15 | Outpatient (CLI) | payer MEDICARE, BC ==
[~2025-05-15] MED LIST changes: +D31000CA5 PO; -VITA100054 PO
== END ==
LOC: M WUC 13:54
PROVIDERS: ATTEND Student in an Organized Health Care Education/Training Program
DX: M19.071 Primary osteoarthritis, right ankle and foot (principal); M21.611 Bunion of right foot; M20.11 Hallux valgus (acquired), right foot; M79.671 Pain in right foot